=== PATIENT | male | born 1990 | race Caucasian/White ===

== ENCOUNTER 2023-12-28 22:54 | Emergency (ER) | payer BC ==
[2023-12-28 23:15] VITALS: TEMP 97.8
--- NOTE | 2023-12-28 23:34 | ERPHSYRPT ---
- History of Present Illness Time Seen by Provider: 12/28/23 23:30 Source: ladle filler Exam Limitations: no limitations Patient Subjective Stated Complaint: pt states he was eating steak and has a piece stuck in his throat Triage Nursing Assessment: pt ambulated into the er; pt is axo x4; pt is anxious, restless; c/o food bolus; intermitten cough present; c/o N/V; clear upper airway; clear lung sounds in all lobes; hypertensive; tachycardic; skin PDW; pt states SOB Physician History: 33yo m presents for food bolus stuck in throat. Pt reports he was eating cube steak around 20:30 this evening, states he feels like it has been moving down his esophagus slightly but states he is unable to swallow, unable to burp or vomit as well. Pt reports discomfort in the upper portion of his mid-chest, states he feels that this is where the piece of food is stuck. Pt currently able to maintain his airway, sats 95% on ra, able to talk w/o hoarse voice, continues to spit out secretions because he cannot swallow. Timing/Duration: today Severity: mild Allergies/Adverse Reactions: bee venom protein (honey bee) Allergy (Verified 12/28/23 22:56) Home Medications: Lisinopril 10 mg [Zestril 10 MG] 10 mg PO DAILY 12/28/23 [History] Metoprolol Succinate 50 mg [Toprol Xl 50 MG] 50 mg PO DAILY 12/28/23 [Hist ory] Simvastatin 20Mg [Zocor 20Mg] 20 mg PO DAILY 12/28/23 [History] Hx Tetanus, Diphtheria Vaccination/Date Given: Yes Hx Influenza Vaccination/Date Given: No Hx Pneumococcal Vaccination/Date Given: No Immunizations Up to Date: No Travel Risk - International Travel Have you traveled outside of the country in past 3 weeks: No - Emerging Infectious Disease Are you exhibiting symptoms associated with any current EIDs: No - Review of Systems Constitutional: No Symptoms Respiratory: No Symptoms Cardiac: Chest Pain, No Edema, No Palpitations Abdominal/Gastrointestinal: No Nausea, No Vomiting - Past Medical History Pertinent Past Medical History: Yes Neurological History: No Pertinent History ENT History: No Pertinent History Cardiac History: High Cholesterol, Hypertension, Other Respiratory History: No Pertinent History Endocrine Medical History: No Pertinent History Musculoskeletal History: No Pertinent History GI Medical History: No Pertinent History History: No Pertinent History Psycho-Social History: No Pertinent History Male Reproductive Disorders: No Pertinent History Other Medical History: rapid heart rate - Past Surgical History Past Surgical History: Yes Other Surgical History: ACL repair left knee, teeth - Social History Smoking Status: Former smoker Exposure to second hand smoke: No Drug Use: none - Social Determinants of Health Will the patient participate in the screening: Yes Do you worry about a steady place to live?: No Do you have any problems with any of the following?: No known problems In the past 12 months,have you had to go without utilities?: No Transportation Issues: No Has anyone in your support network made you feel unsafe?: No Have you or anyone in your house had to go without enough: No - Nursing Vital Signs Nursing Vital Signs: Initial Vital Signs Temperature 97.8 F 12/28/23 22:58 Pulse Rate 119 H 12/28/23 22:58 Respiratory Rate 20 12/28/23 22:58 Blood Pressure 159/115 12/28/23 22:58 O2 Sat by Pulse Oximetry 98 12/28/23 22:58 Pain Scale Pain Intensity 0 - Physical Exam General Appearance: no apparent distress, alert Ears, Nose, Throat Exam: normal ENT inspection, pharynx normal, No pharyngeal erythema Neck Exam: normal inspection, non-tender, supple, No mass Respiratory Exam: normal breath sounds, lungs clear, airway intact, No chest tenderness, No respiratory distress, No diminished breath sounds Cardiovascular Exam: regular rate/rhythm, normal heart sounds, normal peripheral pulses Gastrointestinal/Abdomen Exam: soft, normal bowel sounds, No tenderness, No distention Neurologic Exam: alert, oriented x 3, cooperative SpO2 Interpretation: normal SpO2: 98 O2 Delivery: Room Air Ordered Tests: Active Orders 24 hr Category Date Time Status CHEST 2 VIEWS (PA AND LAT) Stat Exams 12/28/23 23:33 Taken NECK SOFT TISSUE Stat Exams 12/28/23 23:33 Taken Medication Summary Discontinued Medications Generic Name Dose Route Start Last Admin Trade Name Freq PRN Reason Stop Dose Admin Glucagon 1 mg 12/28/23 23:33 12/28/23 23:40 Glucagon 1 Mg/Vial Vial IV 12/28/23 23:34 1 mg STAT ONE Administration Glucagon Confirm 12/28/23 23:39 Glucagon 1 Mg/Vial Vial Administered 12/28/23 23:40 Dose 1 mg .ROUTE .STK-MED ONE Glucagon 1 mg 12/29/23 00:41 12/29/23 00:46 Glucagon 1 Mg/Vial Vial IV 12/29/23 00:42 1 mg STAT ONE Administration Ondansetron HCl 4 mg 12/28/23 23:44 12/28/23 23:51 Ondansetron Hcl 4 Mg/2 Ml Vial IV 12/28/23 23:45 4 mg STAT ONE Administration Ondansetron HCl Confirm 12/28/23 23:50 Ondansetron Hcl 4 Mg/2 Ml Vial Administered 12/28/23 23:51 Dose 4 mg .ROUTE .STK-MED ONE Sterile Water Confirm 12/28/23 23:39 Water For Injection,Sterile 10 Ml Vial Administered 12/28/23 23:40 Dose 10 ml IJ .STK-MED ONE - Progress Progress: improved Progress Note: 12/29/23 00:41 pt reports minimal improvement w/ initial dose of 1mg glucagon IV reports bolus is still present, unable to swallow still, still maintaining his airway well will attempt additional 1mg dose glucagon 12/29/23 00:59 Pt reports significant improvement after 2nd dose glucagon, feels like he was able to swallow the food bolus completely, now able to swallow his secretions and has been able to drink water w/o difficulty plan to monitor for 10-15 more min, ensure pt tolerating secretions and liquids, will likely dc home w/ instructions to f/u w/ gen surg food bolus passed w/ 2mg glucagon recommend outpatient follow up with general surgeon to discuss possibility of EGD recommend pt cut solid foods into small portions, eat primarily liquids and soft foods for the next day while esophagus may be inflamed still return to ED if: develop trouble breathing, develop difficulty swallowing, develop chest pain, develop fevers, develop vomiting that does not resolve Counseled pt/family regarding: need for follow-up, rad results Medical Desision Making - Diagnostic Testing Diagnostic test were ordered, analyzed, and reviewed by me: Yes Radiological Interpretation: Interpreted by me, Reviewed by me - Risk of complications Minimal Risk: Minimal risk of morbidity - Departure Departure Disposition: Home Clinical Impression: Esophageal obstruction due to food impaction Difficulty swallowing Qualifiers: Dysphagia type: unspecified Qualified Code(s): R13.10 - Dysphagia, unspecified Condition: Stable Critical Care Time: No Referrals: FELISA PARMAR MD [Primary Care Provider] - Follow up/PCP as directed Additional Instructions: food bolus passed w/ 2mg glucagon recommend outpatient follow up with general surgeon to discuss possibility of EGD recommend pt cut solid foods into small portions, eat primarily liquids and soft foods for the next day while esophagus may be inflamed still return to ED if: develop trouble breathing, develop difficulty swallowing, develop chest pain, develop fevers, develop vomiting that does not resolve
[2023-12-28] MEDS ORDERED: GlucaGen 1 MG ONE (23:39)
[2023-12-28] MEDS ORDERED: Sterile H2O 10 ml IJ ONE (23:39)
[2023-12-28] MEDS: GlucaGen 1 MG IV ONE (23:40)
[2023-12-28] MEDS ORDERED: Zofran 4 MG/2 ML VIAL ONE (23:50)
[2023-12-28] MEDS: Zofran 4 MG/2 ML VIAL IV ONE (23:51)
[2023-12-29] MEDS: GlucaGen 1 MG IV ONE (00:46)
[2023-12-29 01:41] VITALS: BP 114/81; PULSE 84; RESP 16; O2SAT 97
--- NOTE | 2023-12-29 08:49 | XRAY ---
Indication: Food bolus stuck. Comparison: None PA/lateral chest negative for radiopaque foreign body. Remaining heart and lungs normal with a few incidental tiny calcified granulomas. Bony thorax intact.
--- NOTE | 2023-12-29 08:49 | XRAY ---
Indication: Food bolus stuck. Comparison: None AP/lateral soft tissue neck negative for radiopaque foreign body. Incidental cervical lordotic straightening, minimal C5-C6 disc space narrowing, and a few tiny pulmonary calcified granulomas.
== END 2023-12-29 01:42 | disposition home or self-care (01) ==
LOC: ED 22:54
DX: T18.120A Food in esophagus causing compression of trachea, initial encounter (principal); W44.F3XA Food entering into or through a natural orifice, initial encounter; R13.10 Dysphagia, unspecified; E78.5 Hyperlipidemia, unspecified; I10 Essential (primary) hypertension; Z79.899 Other long term (current) drug therapy
CPT/HCPCS: 70360; 71046; 96374; 99283; J1610; J2405

== ENCOUNTER 2024-02-16 10:31 | Day surgery (SDC) | payer BC ==
--- NOTE | 2024-02-16 08:35 | HP ---
HISTORY OF PRESENT ILLNESS: The patient seen in my office for esophagus dysphagia, in need of EGD at this time. No prior upper endoscopy. Father had dysphagia and had dilatation in the past. PAST MEDICAL HISTORY: Hyperlipidemia and hypertension. HOME MEDICATIONS: Lisinopril, vitamin D3, atorvastatin, metoprolol. ALLERGIES: Bees. PAST SURGICAL HISTORY: Had knee scope in the past. SOCIAL HISTORY: Former smoker. Occasional alcohol use. FAMILY HISTORY: Dysphagia requiring dilatation in father in the past, had heart disease, diabetes. Mother had stroke, heart disease, heart attack in the past, aneurysm in the past. REVIEW OF SYSTEMS: Twelve systems reviewed. Pertinent for other medical problems as noted above. No chest pain or palpitations. Other systems negative or noncontributory as above and per preadmission questionnaire. PHYSICAL EXAMINATION: VITAL SIGNS: Height 5 feet 9 inches. BMI 36.48. GENERAL: No acute distress. HEENT: Sclerae nonicteric. Extraocular movements intact. NECK: No JVD. CHEST: Equal excursion, nonlabored breathing. CARDIOVASCULAR: Regular rate and rhythm. ABDOMEN: Soft. EXTREMITIES: No cyanosis or edema. NEUROLOGIC: Alert and oriented, moving all extremities symmetrically. PSYCHIATRIC: Appropriate mood and affect. SKIN: Dry. IMPRESSION: Dysphagia, upper esophagus. Recommend EGD with possible biopsy, possible dilatation. Shown the risk sheet. Risks were explained in detail including risk of bleeding and infection; risk of bowel injury or perforation possibly requiring open procedure or transfer for stent placement; possibility of no improvement in swallowing possibly requiring other procedures, dilators, or referrals; risk of possible wound in the area of the dilator; possible neurologic or functional problem with dilatation being of no benefit; if dilatation performed and improve swallowing, it may need to be repeated again down the road. He understands all of the above but not limited to. The patient agreed to proceed with EGD, possible biopsy with possible dilatation as an outpatient under MAC anesthesia. Otherwise, will continue medications for hypertension and hyperlipidemia.
[2024-02-16] MEDS: Lactated Ringers 1,000 ML IV SCH (11:15)
[2024-02-16 11:27] VITALS: RESP 16
[2024-02-16] MEDS ORDERED: DIPRIVAN 200 MG/20 ML IV ONE ×2 (13:19→13:39)
[2024-02-16 14:45] VITALS: PULSE 75
[2024-02-16 14:46] VITALS: BP 120/87; TEMP 97.8; O2SAT 99
--- NOTE | 2024-02-17 11:29 | OP ---
SURGERY DATE/TIME: 02/16/2024 4148 - [id number] PREOPERATIVE DIAGNOSIS: Dysphagia. POSTOPERATIVE DIAGNOSIS: Proximal esophageal narrowing and spasm. PROCEDURES: 1) Esophagogastroduodenoscopy, 2) Cold biopsy of distal esophagus to evaluate for some early inflammation and short segment distal esophagus. 3) Cold biopsy of mid esophagus to evaluate for eosinophilic esophagitis. 4) Proximal esophageal dilatation (20 balloon). SURGEON: Roman Orr MD ANESTHESIA: MAC. ESTIMATED BLOOD LOSS: Minimal. INDICATIONS: As above. Consent was obtained. DESCRIPTION OF PROCEDURE AND FINDINGS: Patient was taken to the endoscopy room. MAC anesthesia was induced. After official time-out and no disagreement in planned procedure, bite block positioned. Videogastroscope passed down the oropharynx. There was some proximal esophageal narrowing with a spasm. There was no evidence of any mass or lesion to biopsy of this area. Scope was able to be passed through here but because he is having symptoms felt this warranted attempt at dilatation at the end of the procedure. Scope passed through to the junction of the third and fourth portions of the duodenum. The duodenum was grossly unremarkable, back into the stomach. The stomach was overall fairly unremarkable. No significant gastritis warranting biopsy at this time. No signs of any ulcers. On retroflexion, the GE junction was snug against the scope. The scope was pulled back. The GE junction was about 40 cm. There was some mild erythema plus there was some minimal early inflammation of distal esophagus. Cold biopsy taken in mid esophagus to evaluate for eosinophilic esophagitis to evaluate for other etiology of dysphagia. Scope passed back down into the stomach. Size 20 balloon dilator was carefully placed down in the stomach and then balloon catheter in the opening of the stomach and then pulled back to the proximal esophageal narrowed area. Balloon was placed up to the first stage. Unfortunately, the patient began coughing and retching violently, and coughing the balloon out. It was necessary to get a new balloon. The scope was able to be passed back down into the stomach. The new balloon was then passed and the scope pulled back to the proximal esophageal area and the balloon carefully inflated to the first stage and then inflated to the second stage baseline, then inflated up to 20 balloon. Unfortunately, patient started retching again, coughing violently and coughing the balloon up again. The balloon left in position for a minute or so. The balloon was decompressed and withdrawn. The scope passed back down through the area into the stomach and gradually withdrawn. There some superficial abrasions of the mucosa and the esophagus. There were no visible full-thickness issues just abrasions from the patient coughing and retching. Appeared to have adequate hemostasis. The scope was withdrawn. It was felt he should do room temperature liquids for 4 hours and maybe advance to full liquids for 8 hours or so and then possibly soft diet tomorrow if he can tolerate. If he has any issues with increase severe pain, fever, or any other concerns, he needs to return to the hospital because it could require transfer for stent placement. The patient tolerated the procedure. Again, there are some mucosal abrasions but no visible full-thickness issues secondary to dilatation. We will see him back in the office next week.
== END 2024-02-16 15:00 | disposition home or self-care (01) ==
LOC: SDC 10:31
PROVIDERS: ATTEND Surgery
DX: K22.2 Esophageal obstruction (principal); R13.10 Dysphagia, unspecified
CPT/HCPCS: C1726; J2704